=== PATIENT | female | born 1950 | race Two or more races ===

== ENCOUNTER 2023-09-05 12:10 | Emergency (ER) | payer OTHER ==
[~2023-09-05] VITALS: Ht 154.9 cm; Wt 156.9 kg
[2023-09-05] MEDS ORDERED: SINGULAIR10 MG PO (12:58)
[2023-09-05] MEDS ORDERED: ZOCOR20 MG PO (12:58)
[2023-09-05] MEDS ORDERED: COZAAR100 MG PO (12:58)
[2023-09-05] MEDS ORDERED: GABAPENTIN400 MG PO (12:58)
[2023-09-05] MEDS ORDERED: WELLBUTRIN SR100 MG PO (12:59)
[2023-09-05] MEDS ORDERED: GLUMETZA500 MG PO (12:59)
[2023-09-05] MEDS ORDERED: AMBIEN10 MG PO (12:59)
[2023-09-05] MEDS ORDERED: AZITHROMYCIN 500 MG TABLET PO ONE (13:45)
[2023-09-05] MEDS ORDERED: LEVALBUTEROL HCL 1.25 MG/3 ML SOLUTION IH SCH (13:45)
[2023-09-05] MEDS ORDERED: HYDROCODONE/CHLORPHEN P-STIREX 5 ML ML PO ONE (13:45)
[2023-09-05 14:21] LABS: HEMATOCRIT 43.5 % (36.0-45.00); HEMOGLOBIN 14.3 g/dL (12.0-15.00); MEAN CELL VOLUME 82.7 fL (80.00-100.00); MEAN CORPUSCULAR HEMOGLOBIN 27.2 pg (27.00-32.0); MEAN CORPUSCULAR HGB CONC 32.8 g/dl (32.0-36.0); PLATELET COUNT 273 K/uL (150-450); RED BLOOD COUNT 5.26 M/uL (4.00-6.00); RED CELL DISTRIBUTION WIDTH 16.4 % (11.5-14.5)
[2023-09-05 14:34] LABS: ABG PH 7.398 (7.35-7.45); ABG PO2 72.1 mmHg (80-100); BASE EXCESS 3.7 mmol/l; BICARBONATE 29.6 mmol/l (23-25); SaO2 94.4 %; Tco2 31.1 mmol/l; allen test SATISFACTORY; o2 21 %; puncture site RADIAL RIGHT
[2023-09-05] MEDS ORDERED: TUSNEL LIQUID178 ML PO (15:44)
[2023-09-05] MEDS ORDERED: ZITHROMAX500 MG PO (15:44)
[2023-09-05] MEDS ORDERED: XOPENEX CO1.25 MG/0. IH (15:44)
== END 2023-09-05 15:51 | disposition home or self-care (01) ==
LOC: ER 12:11
PROVIDERS: General Practice
DX: J06.9 Acute upper respiratory infection, unspecified (principal); R06.02 Shortness of breath; Z20.822 Contact with and (suspected) exposure to COVID-19; I10 Essential (primary) hypertension; E11.9 Type 2 diabetes mellitus without complications; Z79.84 Long term (current) use of oral hypoglycemic drugs; Z91.013 Allergy to seafood

== ENCOUNTER 2024-03-21 10:50 | Inpatient (IN) | payer OTHER ==
[~2024-03-21] VITALS: Ht 152.4 cm; Wt 154.2 kg
[~2024-03-21 10:50] MED LIST: AMBIEN10 MG PO; COZAAR100 MG PO; GABAPENTIN400 MG PO; GLUMETZA500 MG PO; SINGULAIR10 MG PO; TUSNEL LIQUID178 ML PO; WELLBUTRIN SR100 MG PO; XOPENEX CO1.25 MG/0. IH; ZITHROMAX500 MG PO; ZOCOR20 MG PO
--- NOTE | 2024-03-21 11:17 | NUR ---
SE RECIBE PACIENTE ALERTA Y ORIENTADA X3 LA CUAL [place] REFIERE VENIR PORQUE OLVERA ESTADO PRESENTANDO DIFICULTAD RESPIRATORIA. AL [place] PTE REFIERE QUE LLEVA CON SINTOMAS DE TOS SECA DESDE HACE DOS SEMANAS. AL [place] PACIENTE SATURNADO 96%. SE MIDEN S/V Y SE UBICA.
[2024-03-21] MEDS ORDERED: METHYLPREDNISOLONE SOD SUCC 125 MG VIAL IV ONE (11:45)
[2024-03-21] MEDS ORDERED: LEVALBUTEROL HCL 1.25 MG/3 ML SOLUTION IH SCH ×3 (11:45→21:00)
[2024-03-21] MEDS ORDERED: GUAIFENESIN/DEXTROMETHORPHAN 10ML BLIST.PACK PO ONE (12:00)
--- NOTE | 2024-03-21 12:03 | NUR ---
SE ORIENTA PTE SOBRE TX, REFIERE ENTENDER Y ACEPTAR. SE ADMINISTRAN MEDICAMENTOS Y SE CELESTINE MUESTRAS DE LABORATORIO HANNAH ORDEN MEDICA Y BAJO MEDIDAS ASEPTICAS. PTE TOLERA Y NO PRESENTA REACCION ADVERSA. PENDIENTE TERAPIA RESPIRATORIA Y XRAYS YA NOTIFICADOS.
[2024-03-21 12:41] LABS: ABG pCO2 41.9 mmHg (35-45); BASE EXCESS 1.9 mmol/l; BICARBONATE 26.6 mmol/l (23-25); SaO2 95.7 %; Tco2 27.9 mmol/l; allen test SATISFACTORY; o2 21 %; puncture site RADIAL LEFT
[2024-03-21 12:47] LABS: HEMATOCRIT 41.4 % (36.0-45.00); HEMOGLOBIN 13.5 g/dL (12.0-15.00); MEAN CELL VOLUME 83.3 fL (80.00-100.00); MEAN CORPUSCULAR HGB CONC 32.5 g/dl (32.0-36.0); PLATELET COUNT 292 K/uL (150-450); RED BLOOD COUNT 4.98 M/uL (4.00-6.00); RED CELL DISTRIBUTION WIDTH 15.6 % (11.5-14.5)
[2024-03-21 13:08] LABS: ALBUMIN 2.8 gm/dL (3.4-5.0); BILIRUBIN TOTAL 0.34 mg/dL (0.3-1.2); CALCIUM 8.9 mg/dL (8.5-10.1); CREATININE SERUM 0.82 mg/dL (0.55-1.02); GFR 68.15; GLOBULINA 4.6 G/DL (2.4-3.5); POTASSIUM 3.99 mEq/L (3.5-5.1); TOTAL PROTEIN 7.4 gm/dL (6.4-8.2)
[2024-03-21] MEDS ORDERED: PIPERACILLIN/TAZOBACTAM SODIUM 3.375 GM in 0.9 % SODIUM CHLORIDE 100 ML IV SCH (13:28)
--- NOTE | 2024-03-21 14:08 | NUR ---
SE CANALIZA PTE EN BRAZO NIKKI CON ANGIO #20, PATENTE, SCOTT DE EDEMA Y ERITEMA, SE COLOCA MEDICAMENTO HANNAH ORDEN MEDICA Y BAJO MEDIDAS ASEPTICAS.
[2024-03-21] MEDS ORDERED: CEFTRIAXONE SODIUM 2,000 MG in 0.9 % SODIUM CHLORIDE 100 ML IV SCH (18:58)
[2024-03-21] MEDS ORDERED: MONTELUKAST SODIUM 10 MG TABLET PO SCH (18:58)
[2024-03-21] MEDS ORDERED: AZITHROMYCIN 500 MG in DEXTROSE 5 % IN WATER 250 ML IV SCH (18:58)
[2024-03-21] MEDS ORDERED: METHYLPREDNISOLONE SOD SUCC 40 MG VIAL IV SCH (18:59)
[2024-03-21] MEDS ORDERED: 0.9 % SODIUM CHLORIDE 1,000 ML IV SCH (19:00)
[2024-03-21] MEDS ORDERED: ACETAMINOPHEN 500 MG GEL..CAP PO PRN (19:00)
[2024-03-21] MEDS ORDERED: NIFEDIPINE 30 MG TAB.SA.OSM PO SCH (19:00)
[2024-03-21] MEDS ORDERED: INSULIN LISPRO 1,000 UNIT/10 ML UNITS SUBCUTANEO PRN (19:15)
[2024-03-21] MEDS ORDERED: DEXTROSE 50 % IN WATER 0.5 G/ML DISP.SYRIN IV PRN (19:15)
[2024-03-21 19:41] VITALS: BP 148/68
[2024-03-21 20:13] LABS: D DIMER 0.77 MG/L; PARTIAL THROMBOPLASTIN TIME 27.8 SECONDS (22.0-34.0)
[2024-03-21 20:20] LABS: INR 1.05; PROTHROMBIN TIME 11.4 SECONDS (9.0-11.5)
[2024-03-21] MEDS ORDERED: IPRATROPIUM BROMIDE 0.5 MG/2.5 ML AMPUL.NEB IH SCH (21:00)
[2024-03-21 22:51] VITALS: BP 160/53; O2SAT 97
[2024-03-22 02:37] VITALS: BP 142/60; O2SAT 97
[2024-03-22 08:00] VITALS: BP 180/84
[2024-03-22] MEDS ORDERED: FAMOTIDINE/PF 20 MG in 0.9 % SODIUM CHLORIDE 8 ML IV PUSH SCH (09:00)
[2024-03-22] MEDS ORDERED: ENOXAPARIN SODIUM 40 MG/0.4 ML SYRINGE SUBCUTANEO SCH (09:00)
[2024-03-22] MEDS ORDERED: LOSARTAN POTASSIUM 50 MG TABLET PO SCH (09:00)
[2024-03-22] MEDS ORDERED: LEVALBUTEROL HCL 1.25 MG/3 ML SOLUTION IH SCH (12:00)
[2024-03-22] MEDS ORDERED: GUAIFENESIN 200 MG/10 ML BLIST.PACK PO SCH (12:00)
[2024-03-22] MEDS ORDERED: PANTOPRAZOLE SODIUM 40 MG TABLET.DR PO NR (12:00)
[2024-03-22] MEDS ORDERED: ISOSORBIDE DINITRATE 5 MG TABLET PO SCH (13:00)
[2024-03-22] MEDS ORDERED: FUROsemide 20 MG/2 ML VIAL IV SCH (13:00)
[2024-03-22] MEDS ORDERED: SIMVASTATIN 10 MG TABLET PO SCH (17:00)
[2024-03-22] MEDS ORDERED: AMINO ACIDS/PROTEIN HYDROLYS 30 ML BLIST.PACK PO SCH (17:00)
[2024-03-22 17:35] VITALS: BP 159/72; O2SAT 97
[2024-03-23 01:21] VITALS: BP 100/53; O2SAT 94
[2024-03-23 05:41] VITALS: BP 138/64; O2SAT 90
[2024-03-23] MEDS ORDERED: PANTOPRAZOLE SODIUM 40 MG TABLET.DR PO SCH (09:00)
[2024-03-23] MEDS ORDERED: FUROsemide 20 MG/2 ML VIAL IV SCH (09:00)
[2024-03-23 09:17] VITALS: BP 150/68; O2SAT 100
[2024-03-23 11:25] LABS: HEMATOCRIT 42.9 % (36.0-45.00); HEMOGLOBIN 13.9 g/dL (12.0-15.00); MEAN CELL VOLUME 83.1 fL (80.00-100.00); MEAN CORPUSCULAR HGB CONC 32.5 g/dl (32.0-36.0); PLATELET COUNT 326 K/uL (150-450); RED BLOOD COUNT 5.16 M/uL (4.00-6.00); RED CELL DISTRIBUTION WIDTH 15.9 % (11.5-14.5)
[2024-03-23 12:30] LABS: ALBUMIN 3.1 gm/dL (3.4-5.0); BILIRUBIN TOTAL 0.38 mg/dL (0.3-1.2); CALCIUM 9.3 mg/dL (8.5-10.1); CREATININE SERUM 0.75 mg/dL (0.55-1.02); GFR 75.54; GLOBULINA 4.3 G/DL (2.4-3.5); MAGNESIUM 2.2 mg/dL (1.8-2.4); PHOSPHOROUS 2.6 mg/dL (2.5-4.9); POTASSIUM 4.04 mEq/L (3.5-5.1); TOTAL PROTEIN 7.4 gm/dL (6.4-8.2); TSH 0.726 uIU/mL (0.358-3.74)
[2024-03-23 12:35] LABS: C-REACTIVE PROTEIN 2.85 MG/DL (0.00-0.29)
[2024-03-23] MEDS ORDERED: CODEINE/PROMETHAZINE HCL 1 ML ML PO SCH (13:00)
[2024-03-23 18:18] VITALS: BP 182/76
[2024-03-23 22:07] VITALS: BP 115/50
[2024-03-24 02:32] VITALS: BP 138/64; O2SAT 100
[2024-03-24 08:51] VITALS: BP 170/70; O2SAT 97
[2024-03-24] MEDS ORDERED: FUROsemide 20 MG TABLET PO SCH (09:00)
[2024-03-24 13:17] VITALS: BP 142/70; O2SAT 98
[2024-03-24 16:52] VITALS: BP 176/73
[2024-03-25 02:29] VITALS: BP 146/64; O2SAT 100
[2024-03-25 07:58] LABS: HEMATOCRIT 39.5 % (36.0-45.00); HEMOGLOBIN 12.7 g/dL (12.0-15.00); MEAN CELL VOLUME 83.3 fL (80.00-100.00); MEAN CORPUSCULAR HEMOGLOBIN 26.8 pg (27.00-32.0); MEAN CORPUSCULAR HGB CONC 32.1 g/dl (32.0-36.0); PLATELET COUNT 287 K/uL (150-450); RED BLOOD COUNT 4.74 M/uL (4.00-6.00); RED CELL DISTRIBUTION WIDTH 15.6 % (11.5-14.5)
[2024-03-25 08:51] VITALS: BP 160/69; O2SAT 96
[2024-03-25 16:00] VITALS: BP 165/89; O2SAT 88
[2024-03-26 01:16] VITALS: BP 160/81; O2SAT 93
[2024-03-26 06:15] LABS: HEMATOCRIT 40.6 % (36.0-45.00); HEMOGLOBIN 13.4 g/dL (12.0-15.00); MEAN CELL VOLUME 81.9 fL (80.00-100.00); MEAN CORPUSCULAR HEMOGLOBIN 27.1 pg (27.00-32.0); PLATELET COUNT 296 K/uL (150-450); RED BLOOD COUNT 4.96 M/uL (4.00-6.00); RED CELL DISTRIBUTION WIDTH 15.7 % (11.5-14.5)
[2024-03-26 07:28] LABS: ALBUMIN 2.8 gm/dL (3.4-5.0); BILIRUBIN TOTAL 0.37 mg/dL (0.3-1.2); CALCIUM 8.9 mg/dL (8.5-10.1); CREATININE SERUM 0.64 mg/dL (0.55-1.02); GFR 90.71; GLOBULINA 3.7 G/DL (2.4-3.5); POTASSIUM 4.86 mEq/L (3.5-5.1); TOTAL PROTEIN 6.5 gm/dL (6.4-8.2)
[2024-03-26 09:38] VITALS: BP 144/60; O2SAT 96
[2024-03-26 14:36] LABS: PH,URINE 5.5 (5.0-8.0); URINE APPEARANCE Clear; URINE BILIRRUBIN Negative (NEGATIVE); URINE BLOOD Negative; URINE COLOR Yellow; URINE GLUCOSE Negative (NEGATIVE); URINE KETONE Negative (NEGATIVE); URINE LEUKOCYTE Trace; URINE NITRATE Negative; URINE PROTEIN Negative (NEGATIVE); URINE UROBILINOGEN 0.2 E.U./dl
[2024-03-26 14:40] LABS: URINE BACTERIA 51.6 uL (0.0-1933); URINE EPITHELIAL CELLS 12.2 uL (0.0-38.8); URINE RBC 9.4 uL (0.0-20.8); URINE WBC 7.5 uL (0.0-23.2)
[2024-03-26 15:00] LABS: URINE CAST 0.76 uL (0.0-1.40)
[2024-03-26 15:01] LABS: URINE MUCUS MODERATE
[2024-03-26 16:00] VITALS: BP 133/69; O2SAT 92
[2024-03-26] MEDS ORDERED: ISOSORBIDE DINIT5 MG PO (19:00)
[2024-03-26] MEDS ORDERED: COZAAR50 MG PO (19:01)
[2024-03-26] MEDS ORDERED: NIFEDIPINE ER30 M1 PO (19:02)
[2024-03-26] MEDS ORDERED: LASIX20 MG PO (19:02)
== END 2024-03-26 19:53 | disposition home or self-care (01) | DRG 202 ==
LOC: ER 10:52 → MEDI 19:31
PROVIDERS: General Practice; Internal Medicine; Internal Medicine Critical Care Medicine; Internal Medicine Infectious Disease; ADMIT Internal Medicine; ATTEND Internal Medicine
PROC: BW24ZZZ Computerized Tomography (CT Scan) of Chest and Abdomen (ICD-10-PCS; principal; 2024-03-21)
PROC: B24BYZZ Ultrasonography of Heart with Aorta using Other Contrast (ICD-10-PCS; 2024-03-22)
PROC: 4A12X4Z Monitoring of Cardiac Electrical Activity, External Approach (ICD-10-PCS; 2024-03-22)
DX: J45.901 Unspecified asthma with (acute) exacerbation (principal); E87.20 Acidosis, unspecified; J44.1 Chronic obstructive pulmonary disease with (acute) exacerbation; J81.1 Chronic pulmonary edema; J20.9 Acute bronchitis, unspecified; I50.9 Heart failure, unspecified; I10 Essential (primary) hypertension; E66.9 Obesity, unspecified; E11.9 Type 2 diabetes mellitus without complications; Z79.4 Long term (current) use of insulin

== ENCOUNTER 2024-09-28 15:47 | Emergency (ER) | payer OTHER ==
[~2024-09-28] VITALS: Ht 157.5 cm; Wt 151.5 kg
[~2024-09-28 15:47] MED LIST changes: +COZAAR50 MG PO; +ISOSORBIDE DINIT5 MG PO; +LASIX20 MG PO; +NIFEDIPINE ER30 M1 PO
[2024-09-28] MEDS ORDERED: KETOROLAC TROMETHAMINE 30 MG VIAL IM STA (16:44)
[2024-09-28] MEDS ORDERED: KETOROLAC TROMETHAMINE 30 MG VIAL ONE (16:45)
[2024-09-28 17:01] LABS: HEMATOCRIT 41.1 % (36.0-45.00); HEMOGLOBIN 13.7 g/dL (12.0-15.00); MEAN CELL VOLUME 80.8 fL (80.00-100.00); MEAN CORPUSCULAR HEMOGLOBIN 26.9 pg (27.00-32.0); MEAN CORPUSCULAR HGB CONC 33.3 g/dl (32.0-36.0); PLATELET COUNT 282 K/uL (150-450); RED BLOOD COUNT 5.08 M/uL (4.00-6.00); RED CELL DISTRIBUTION WIDTH 16.1 % (11.5-14.5)
[2024-09-28 17:54] LABS: COVID-19 AG NEGATIVE (NEGATIVE); INFLUENZA A AG NEGATIVE (NEGATIVE)
== END 2024-09-28 18:06 | disposition home or self-care (01) ==
LOC: ER 15:47
PROVIDERS: General Practice
DX: J06.9 Acute upper respiratory infection, unspecified (principal); Z91.013 Allergy to seafood; Z20.822 Contact with and (suspected) exposure to COVID-19
CPT/HCPCS: 36415; 96372; 99282; J1885